=== PATIENT | female | born 1985 | race Caucasian/White ===

== ENCOUNTER 2017-10-30 05:28 | Inpatient (IN) | payer OTHER ==
[~2017-10-30] VITALS: Ht 165.1 cm; Wt 67.3 kg
[2017-10-30] VITALS (9 sets, daily range): BP systolic 107–122; BP diastolic 62–83
[~2017-10-30 05:28] MED LIST: ENDOCET 5-3251 EACH PO; IBUPROFEN800 MG PO; VITAFOL-OB+DHA1 EACH PO
[2017-10-30] MEDS ORDERED: ENDOCET 5-3251 EACH PO (08:12)
[2017-10-30] MEDS ORDERED: IBUPROFEN800 MG PO (08:12)
[2017-10-31 06:38] LABS: BASOPHIL (%) 0.2 % (0-1); EOSINOPHIL (%) 0.3 % (0-5); HEMATOCRIT 29.4 % (36.0-46.0); IMMATURE GRANULOCYTE (%) 0.8 % (0.0-0.7); LYMPHOCYTE (%) 11.5 % (15-42); MCH 28.7 PG (29.0-34.0); MCHC 32.7 G/DL (30.0-36.0); MONOCYTE (%) 10.5 % (3-12); MONOCYTE COUNT 0.9 K/uL (0-0.8); NEUTROPHIL (%) 76.7 % (45-76); NEUTROPHIL COUNT 6.7 K/uL (1.8-6.4); PLATELET COUNT 103 K/uL (156-360); RBC DIS.WIDTH-SD 41.8 % (39-53); RED BLOOD COUNT 3.34 M/uL (3.80-5.20); WHITE BLOOD COUNT 8.7 K/uL (4.1-10.2)
[2017-10-31 06:45] LABS: HEMOGLOBIN 9.6 G/DL (11.9-15.5)
[2017-10-31 07:29] VITALS: BP 113/68
[2017-10-31 10:55] VITALS: BP 123/69
[2017-10-31 16:16] VITALS: BP 113/73
[2017-10-31 19:23] VITALS: BP 121/71
[2017-10-31 23:02] VITALS: BP 102/61
[2017-11-01 03:00] VITALS: BP 113/67
== END 2017-11-01 15:52 | disposition home or self-care (01) | DRG 765 ==
LOC: 2WEST 05:28 → 2SOUTH 08:56 → 2WEST 11-01 15:52
PROVIDERS: Obstetrics & Gynecology
PROC: 3E0R3BZ Introduction of Anesthetic Agent into Spinal Canal, Percutaneous Approach (ICD-10-PCS; principal; 2017-10-30)
PROC: 10D00Z1 Extraction of Products of Conception, Low, Open Approach (ICD-10-PCS; principal; 2017-10-30)
PROC: 00HU33Z Insertion of Infusion Device into Spinal Canal, Percutaneous Approach (ICD-10-PCS; principal; 2017-10-30)
DX: O34.211 Maternal care for low transverse scar from previous cesarean delivery (principal); O99.12 Other diseases of the blood and blood-forming organs and certain disorders involving the immune mechanism complicating childbirth; Z3A.39 39 weeks gestation of pregnancy; Z37.0 Single live birth; D69.6 Thrombocytopenia, unspecified
CPT/HCPCS: 36415; 85025; 86850; 86900; 86901; J0131; J0690; J1200; J1885; J2250; J2274; J2405; J7120